=== PATIENT | female | born 1960 | race American Indian/Alaskan Native ===

== ENCOUNTER 2016-12-03 13:18 | Emergency (ER) | payer MEDICARE, MEDICAID ==
[2016-12-03 13:27] VITALS: PULSE 107; RESP 18; TEMP 97; O2SAT 100
--- NOTE | 2016-12-03 14:27 | RAD ---
PROCEDURE: Right Ankle Radiographs. HISTORY: ankle injury COMPARISON: None available FINDINGS: BONES: No acute displaced fracture. Small calcaneal enthesophyte. JOINTS: No dislocation. SOFT TISSUES: Soft tissue swelling. No evidence of radiopaque foreign body. OTHER FINDINGS: None. IMPRESSION: Soft tissue swelling. No acute displaced fracture or dislocation identified. If high clinical index of suspicion persists for occult fracture, cross-sectional imaging may be considered.
--- NOTE | 2016-12-03 14:53 | ED PDOC ---
Lower Extremity Pain/Injury Time Seen by Provider: 12/03/16 13:59 Chief Complaint (Nursing): Lower Extremity Problem/Injury Chief Complaint (Provider): ANKLE PAIN History Per: Patient (56 Y/O FEMALE HERE FOR EVALUATION OF RIGHT ANKLE PAIN INTERMITTENTLY SINCE MAY. PATIENT STATES SHE HAS SEEN 2 [employer]. HAS BEEN TOLD SHE HAS ARTHRITIS IN ANKLE. DENIES ANY TRAUMA. NOTED TO HAVE ELEVATED BP IN TRIAGE. PAITENT STATES SHE HAS WHITE COAT HYPERTENSION. DENIES ANY CHEST PAIN/HEADACHE/DIZZINESS. PATIENT TOOK HERSELF OFF OF BP MEDICATIONS AND LOST WEIGHT. STATES SHE HAS BEEN SEEN BY PMD WITH BLOOD PRESSURE CONTROLLED IN PAST.) Past Medical History Reviewed: Historical Data, Nursing Documentation, Vital Signs Vital Signs: Last Vital Signs Temp 97 F L 12/03/16 13:24 Pulse 107 H 12/03/16 13:24 Resp 18 12/03/16 13:24 BP 216/128 H 12/03/16 13:24 Pulse Ox 100 12/03/16 13:24 - Family History Family History: States: No Known Family Hx - Home Medications Home Medications: Ambulatory Orders Medication Instructions Recorded Ibuprofen [Motrin] 600 mg PO Q8 PRN #10 tab 12/03/16 amLODIPine [Norvasc] 5 mg PO DAILY #15 tab 12/03/16 - Allergies Allergies/Adverse Reactions: Allergies Allergy/AdvReac Type Severity Reaction Status Date / Time No Known Allergies Allergy Verified 12/03/16 13:24 Review of Systems ROS Statement: Except As Marked, All Systems Reviewed And Found Negative Physical Exam - Reviewed Nursing Documentation Reviewed: Yes Vital Signs Reviewed: Yes - Physical Exam Appears: Positive for: Well, Non-toxic, No Acute Distress Head Exam: Positive for: ATRAUMATIC, NORMAL INSPECTION, NORMOCEPHALIC Skin: Positive for: Normal Color, Warm, DRY Eye Exam: Positive for: EOMI, Normal appearance, PERRL ENT: Positive for: Normal ENT Inspection Neck: Positive for: Normal, Painless ROM Cardiovascular/Chest: Positive for: Regular Rate, Rhythm Respiratory: Positive for: CNT, Normal Breath Sounds Gastrointestinal/Abdominal: Positive for: Normal Exam, Bowel Sounds, Soft Back: Positive for: Normal Inspection Extremity: Positive for: Normal ROM, Tenderness (TENDERNESS NOTED MEDIAL TO LATERAL MALLEOULUS.) Neurologic/Psych: Positive for: Alert, Oriented - ECG O2 Sat by Pulse Oximetry: 100 - Progress ED Course And Treament: XRY ANKLE: SOFT TISSUE SWELLING; NEG FOR BONY INJURY. MOTRIN 600MG X 1 DOSE REPEAT BP 170/110 NORVASC 5 MG IN ED Disposition - Clinical Impression Clinical Impression: Hypertension, Ankle injury - Patient ED Disposition Is Patient to be Admitted: No - Disposition Referrals: Vic Zacarias DPM [[facility]] - Disposition: Routine/Home Disposition Time: 14:54 Condition: FAIR Prescriptions: amLODIPine [Norvasc] 5 mg PO DAILY #15 tab Ibuprofen [Motrin] 600 mg PO Q8 PRN #10 tab PRN Reason: Pain, Moderate (4-7) Instructions: Ankle Sprain (ED) Forms: [facility] ED School/Work Excuse
[2016-12-03 17:59] VITALS: BP 208/110
== END 2016-12-03 18:00 | disposition home or self-care (01) ==
LOC: H.ER 13:18
DX: M25.571 Pain in right ankle and joints of right foot (principal); I10 Essential (primary) hypertension; M79.89 Other specified soft tissue disorders